=== PATIENT | female | born 1985 | race American Indian/Alaskan Native ===

== ENCOUNTER 2017-05-22 10:35 | Emergency (ER) | payer SELFPAY ==
[2017-05-22] MEDS ORDERED: NORCO 5/325 PO ONE (23:07)
[2017-05-22] MEDS ORDERED: TORADOL IM ONE (23:07)
--- NOTE | 2017-05-22 23:09 | Emergency Department Report ---
ED Chest Pain HPI - General Chief Complaint: Chest Pain Stated Complaint: chest pain Time Seen by Provider: 05/22/17 22:43 Source: patient Mode of arrival: Ambulatory Limitations: No Limitations - History of Present Illness Initial Comments: 32-year-old female with a past medical history a previous cholecystectomy presents to the hospital with complains of chest pain and left ear pain. Patient has had mid/sternal chest pain for the past week that is constant and stabbing. Worse with deep inspiration, palpation, and movement. Pain is moderate in intensity without alleviating factors. Patient feeling short of breath due to pain with deep inspiration. Patient denies cough, fever, chest trauma, calf tenderness, edema, history of PE/DVT, peripheral control pill use, or recent travel. Patient started to have left ear pain for the past 5 days as progressively worsening and spreading to her head. Patient works building cabinets and performs heavy lifting. Severity scale (0 -10): 6 - Related Data Previous Rx's Medication Instructions Recorded Last Taken Type ALBUTEROL Inhaler [ProAir HFA 1 puff IH Q4-6H PRN #1 inha 04/11/13 Unknown Rx Inhaler] Benzonatate [Tessalon Perle] 100 mg PO Q6H PRN #12 capsule 04/11/13 Unknown Rx Ibuprofen [Motrin] 800 mg PO TID PRN #20 tablet 04/11/13 Unknown Rx Amoxicillin [Amoxicillin TAB] 875 mg PO BID #20 tablet 05/22/17 Unknown Rx HYDROcodone/APAP 5-325 [[place] 1 each PO Q6HR PRN #20 tablet 05/22/17 Unknown Rx 5/325] Ibuprofen [Motrin] 800 mg PO Q8HR PRN #30 tablet 05/22/17 Unknown Rx Allergies Allergy/AdvReac Type Severity Reaction Status Date / Time No Known Allergies Allergy Unverified 04/11/13 12:59 Heart Score - HEART Score History: Slightly suspicious EKG: Normal Age: < 45 Risk factors: 1-2 risk factors (smoker, obese) Troponin: < normal limit HEART Score: 1 ED Review of Systems ROS: Stated complaint: FLU LIKE SYMPTOMS Other details as noted in HPI Comment: All other systems reviewed and negative Other: Constitutional: No fevers chills Eyes: No eye pain visual changes ENT: as per hpi Neck: Denies pain Respiratory: Denies cough wheezing Cardiovascular: as per hpi GI: Denies abdominal pain, nausea, vomiting, diarrhea : Denies dysuria Musculoskeletal: Denies back pain Skin: Denies rash, lesions, erythema Neurologic: Denies headache, numbness, weakness Psychiatric: Denies suicidal ideation, hallucinations ED Past Medical Hx - Past Medical History Previous Medical History?: No - Surgical History Hx Cholecystectomy: Yes Additional Surgical History: gallbladder 2010 - Social History Smoking Status: Current Every Day Smoker Substance Use Type: None - Medications Home Medications: Home Medications Medication Instructions Recorded Confirmed Last Taken Type ALBUTEROL Inhaler [ProAir HFA 1 puff IH Q4-6H PRN #1 inha 04/11/13 Unknown Rx Inhaler] Benzonatate [Tessalon Perle] 100 mg PO Q6H PRN #12 capsule 04/11/13 Unknown Rx Ibuprofen [Motrin] 800 mg PO TID PRN #20 tablet 04/11/13 Unknown Rx Amoxicillin [Amoxicillin TAB] 875 mg PO BID #20 tablet 05/22/17 Unknown Rx HYDROcodone/APAP 5-325 [[place] 1 each PO Q6HR PRN #20 tablet 05/22/17 Unknown Rx 5/325] Ibuprofen [Motrin] 800 mg PO Q8HR PRN #30 tablet 05/22/17 Unknown Rx ED Physical Exam - General Limitations: No Limitations - Other Other exam information: General: No limitations, patient is alert in no acute distress Head exam: Atraumatic, normocephalic Eyes exam: Normal appearance, pupils equal reactive to light, extraocular movements intact ENT: Moist mucous membrane, left ear: Erythema with good light reflex. Right ear no erythema good light reflex Neck exam: Normal inspection, full range of motion, no meningismus nontender Respiratory exam: Clear to auscultation bilateral, no wheezes, rales, crackles. Reproducible sternal and upper chest wall tenderness to palpation. Cardiovascular: Normal rate and rhythm, normal heart sounds Abdomen: Soft, nondistended, and nontender, with normal bowel sounds, no rebound, or guarding Extremity: Full range of motion normal inspection no deformity, tenderness or edema Back: Normal Inspection, full range of motion, no tenderness Neurologic: Alert, oriented x3, cranial nerves intact, no motor or sensory deficit Psychiatric: normal affect, normal mood Skin: Warm, dry, intact ED Course Vital Signs 05/22/17 05/22/17 05/22/17 11:30 22:21 22:45 Temperature 98.5 F 98.5 F Pulse Rate 63 59 L 56 L Respiratory 16 16 18 Rate Blood Pressure 109/61 113/65 Blood Pressure 98/61 [Right] O2 Sat by Pulse 99 99 Oximetry 05/22/17 23:01 Temperature Pulse Rate Respiratory 16 Rate Blood Pressure Blood Pressure [Right] O2 Sat by Pulse 99 Oximetry - Reevaluation(s) Reevaluation #1: 05/22/17 23:46 pt received toradol and norco for pain MICHELLE score - Michelle Score Age > 65: (0) No Aspirin use within the Past 7 Days: (0) No 3 or more CAD Risk Factors: (0) No 2 or more Angina events in past 24 hrs: (0) No Known CAD with more than 50% Stenosis: (0) No Elevated Cardiac Markers: (0) No ST Deviation Greater than 0.5mm: (0) No MICHELLE Score: 0 ED Medical Decision Making - EKG Data -: EKG Interpreted by Co EKG shows normal: sinus rhythm, axis (74), QRS complexes (58), ST-T waves (no stemi/t inv) Rate: normal (58) - EKG Data When compared to previous EKG there are: previous EKG unavailable - Radiology Data Radiology results: report reviewed (chest x-ray read by radiologist: No acute findings) - Medical Decision Making Chest pain is reproducible with unremarkable vital signs, chest x-ray, and EKG. No DVT/PE risk factors. Patient performs lifting building cabinets at work that could be the inciting cause. She reaches symptomatically for pain and outpatient follow-up will be encouraged. Left ear appears to be more red than the right and therefore patient will be covered with antibiotics for otitis - Differential Diagnosis costochondritis, NH, PE, otitis media, otitis seroma, Critical Care Time: No Critical care attestation.: If time is entered above; I have spent that time in minutes in the direct care of this critically ill patient, excluding procedure time. ED Disposition Clinical Impression: Acute costochondritis Otitis media Qualifiers: Chronicity: acute Laterality: left Disposition: DC-01 TO HOME OR SELFCARE Is pt being admited?: No Does the pt Need Aspirin: No Condition: Stable Instructions: Costochondritis (ED), Otitis Media (ED) Additional Instructions: Take the medication as prescribed. Do not drive or operate heavy machinery while taking the Gr[place]. Follow up with the clinic or doctor provided. Return if symptoms worsen. Prescriptions: Amoxicillin [Amoxicillin TAB] 875 mg PO BID #20 tablet HYDROcodone/APAP 5-325 [[place] 5/325] 1 each PO Q6HR PRN #20 tablet PRN Reason: Pain Ibuprofen [Motrin] 800 mg PO Q8HR PRN #30 tablet PRN Reason: Pain Referrals: LUL WRIGHT MD [Primary Care Provider] - 3-5 Days [facility] [Provider Group] - 3-5 Days (primary care clinic) Forms: Work/School Release Form(ED) Time of Disposition: 23:50
--- NOTE | 2017-05-22 23:38 | XRay Report ---
FINAL REPORT PROCEDURE: Chest. TECHNIQUE: PA and lateral views. HISTORY: Shortness of breath. COMPARISON: No prior studies are available for comparison. FINDINGS: The heart and mediastinum appear normal. The lungs are clear and well expanded. There are no pleural effusions. The soft tissues and regional skeleton are unremarkable. IMPRESSION: Normal study.
[2017-05-23 00:28] VITALS: BP 107/69
== END 2017-05-23 00:29 | disposition home or self-care (01) ==
LOC: ED 10:35
DX: M94.0 Chondrocostal junction syndrome [Tietze] (principal); R07.89 Other chest pain; H66.92 Otitis media, unspecified, left ear; F17.200 Nicotine dependence, unspecified, uncomplicated; Z90.49 Acquired absence of other specified parts of digestive tract
CPT/HCPCS: 71046; 93005; 93010; 96372; 99283; J1885

== ENCOUNTER 2017-11-08 18:48 | Emergency (ER) | payer SELFPAY ==
[2017-11-08] MEDS ORDERED: MOTRIN ONE (19:38)
[2017-11-08] MEDS ORDERED: MOTRIN PO ONE (19:44)
--- NOTE | 2017-11-08 22:04 | XRay Report ---
FINAL REPORT PROCEDURE: Left femur. TECHNIQUE: AP and lateral views. HISTORY: Laceration with metal object. COMPARISON: No prior studies are available for comparison. FINDINGS: The bones appear intact without fracture or dislocation. The joint spaces appear satisfactory. The soft tissues are unremarkable. There are no radiopaque foreign bodies. IMPRESSION: Normal study.
[2017-11-09] MEDS ORDERED: XYLOCAINE 1% 20 mL INFILTRATI ONE (03:29)
[2017-11-09] MEDS ORDERED: BOOSTRIX IM ONE (03:29)
--- NOTE | 2017-11-09 03:56 | Emergency Department Report ---
ED Laceration HPI - HPI Chief Complaint: Laceration/Recheck/Suture Stated Complaint: HOLE IN LEG Time Seen by Provider: 11/09/17 03:28 Occurred When: Yesterday Location: Upper Extremity Severity: mild Tetanus Status: Not up to Date Laceration Symptoms: Yes Pain, No Foreign Body Sensation, No Numbness, No Weakness Other History: This is a 32-year-old female nontoxic, well nourished in appearance, no acute signs of distress presents to the ED with c/o of left thigh laceration that occurred last night around 7 PM. Patient stated that she was caught on a hook. Patient denies any bleeding. She stated the bleeding is under control. Patient denies any fever, chills, nausea, vomiting, chest pain, shortness of breathe, headache, stiff neck, numbness or tingling. Patient stated that she is not up-to-date with tetanus. Patient denies any allergies or significant past medical history. ED Review of Systems ROS: Stated complaint: HOLE IN LEG Other details as noted in HPI Constitutional: denies: chills, fever Eyes: denies: eye pain, eye discharge, vision change ENT: denies: ear pain, throat pain Respiratory: denies: cough, shortness of breath, wheezing Cardiovascular: denies: chest pain, palpitations Endocrine: no symptoms reported Gastrointestinal: denies: abdominal pain, nausea, diarrhea Genitourinary: denies: urgency, dysuria, discharge Musculoskeletal: denies: back pain, joint swelling, arthralgia Skin: denies: rash, lesions Neurological: denies: headache, weakness, paresthesias Psychiatric: denies: anxiety, depression Hematological/Lymphatic: denies: easy bleeding, easy bruising ED Past Medical Hx - Past Medical History Previous Medical History?: No - Surgical History Past Surgical History?: Yes Hx Cholecystectomy: Yes Additional Surgical History: gallbladder 2010 - Social History Smoking Status: Current Every Day Smoker Substance Use Type: None - Medications Home Medications: Home Medications Medication Instructions Recorded Confirmed Last Taken Type ALBUTEROL Inhaler [ProAir HFA 1 puff IH Q4-6H PRN #1 inha 04/11/13 Unknown Rx Inhaler] Benzonatate [Tessalon Perle] 100 mg PO Q6H PRN #12 capsule 04/11/13 Unknown Rx Ibuprofen [Motrin] 800 mg PO TID PRN #20 tablet 04/11/13 Unknown Rx Amoxicillin [Amoxicillin TAB] 875 mg PO BID #20 tablet 05/22/17 Unknown Rx HYDROcodone/APAP 5-325 [[place] 1 each PO Q6HR PRN #20 tablet 05/22/17 Unknown Rx 5/325] Ibuprofen [Motrin] 800 mg PO Q8HR PRN #30 tablet 05/22/17 Unknown Rx Sulfamethoxazole/Trimethoprim 1 each PO BID #14 tablet 11/09/17 Unknown Rx [Bactrim DS TAB] traMADol [Ultram] 50 mg PO Q6HR PRN #12 tablet 11/09/17 Unknown Rx Laceration Physical Exam - Exam General: Vital signs noted. No distress. Alert and acting appropriately. GENERAL: The patient is a well-developed, well-nourished in no apparent distress. Patient is alert and acting appropriately for age. Alert and oriented 3, no apparent distress, normal gait, atraumatic. HEENT: Head is normocephalic and atraumatic. PERRL, Extraocular muscles are intact. Pupils are equal, round, and reactive to light and accommodation. Nares appeared normal. Mouth is well hydrated and without lesions. Mucous membranes are moist. Posterior pharynx clear of any exudate or lesions. Mouth is well hydrated and without lesions. Tonsils not erythematous or swollen. Uvula midline. Tongue elevated. Mucous members are moist. Posterior pharynx clear, no exudate or lesions. Patent airways. NECK: Supple. No carotid bruits. No lymphadenopathy or thyromegaly.nontender. No meningitic signs are noted. LUNGS: Clear to auscultation. Non labor breathing. No intercostal retractions. Symmetrical with respiration, no wheezing, no rales, or crackles. HEART: Regular rate and rhythm without murmur, rubs or gallops. No reproducible. S1, S2 present, regular rate and rhythm without murmur, no rubs, no gallops. ABDOMEN: Soft, nontender, and nondistended. Positive bowel sounds. No hepatosplenomegaly was noted. No guarding or rebound tenderness, negative epigastric bruit. Negative psoas sign, negative negron sign, negative McBurneys sign EXTREMITIES: Without any cyanosis, clubbing, rash, lesions or edema. Peripheral pulses intact. Capillary refill less than 2 seconds. Full range of motion bilaterally. NEUROLOGIC: Cranial nerves II through XII are grossly intact. Alert and oriented x 3. Normal gait. Symmetrical strength and sensation. Reflexes 2+ throughout. Cerebellar testing normal. GCS score of 15. PSYCHIATRIC: Normal affect with no suicidal or homicidal ideations. Wound Length (cm): 1 Laceration Location: Upper Extremity Full Body Front + Back: 1 - 1 cm superficial laceration with bleeding controlled. Laceration Exam: Yes Normal Distal CMS, No Foreign Body, No Exposed Tendon, Vessel, or Nerve, No Tendon Injury ED Course Vital Signs 11/08/17 11/08/17 19:47 20:03 Temperature 98.4 F Pulse Rate 77 Respiratory 20 20 Rate Blood Pressure 115/78 [Right] O2 Sat by Pulse 99 Oximetry - Reevaluation(s) Reevaluation #1: 11/09/17 03:53 Patient is speaking in full sentences with no signs of distress noted. - Laceration /Wound Repair Left Thigh Wound Location: lower extremity (left anterior thigh) Wound Length (cm): 1 Wound's Depth, Shape: superficial, linear Wound Explored: clean Irrigated w/ Saline (ccs): 40 Betadine Prep?: Yes Anesthesia: 1% Lidocaine Volume Anesthetic (ccs): 6 Wound Debrided: minimal Wound Repaired With: sutures Suture Size/Type: 4:0, proline Number of Sutures: 5 Layer Closure?: Yes Deep Layer Suture Size/Type: 4:0 (Vicryl) Number Deep Layer Sutures: 1 Sterile Dressing Applied?: Yes Progress: Under sterile field, I used Betadine to clean the area. I then used 40 mL of normal saline to flush the area. I then used 1% lidocaine plain and injected 6 mL to the wound. I then used a 4-0 Vicryl to suture the laceration deeper dermis with total of 2 stitches. I did used a 4-0 Prolene to suture superficial laceration. Number of stitches 5. I then applied a sterile 4 x 4 with tape. Minimal bleeding noted but is under control. Patient tolerated procedure well with no signs of distress. ED Medical Decision Making - Medical Decision Making This is a 32-year-old female that presents with laceration. Patient is stable and was examined by me. Patient received Tetanus in the ED. The laceration suturing has been performed and has been performed and patient tolerated well. A sterile dressing has been applied. Patient was educated on proper wound care. Patient is discharged with Bactrim and Ultram and was instructed not to operate any machinery while taking Ultram due to drowsiness. Patient was instructed to return in 10 days for suture removal. Patient was instructed to refer to Follow-up with a primary care doctor in 3-5 days or if symptoms worsen and continue return to emergency room as soon as possible. At time of discharge , the patient does not seem toxic or ill in appearance. No acute signs of distress noted. Patient agrees to discharge treatment plan of care. No further questions noted by the patient. Critical care attestation.: If time is entered above; I have spent that time in minutes in the direct care of this critically ill patient, excluding procedure time. ED Disposition Clinical Impression: Laceration Disposition: DC-01 TO HOME OR SELFCARE Is pt being admited?: No Does the pt Need Aspirin: No Condition: Stable Instructions: Suture Care (ED), Laceration (ED), Tramadol (By mouth) Additional Instructions: Follow-up with a primary care doctor in 3-5 days or if symptoms worsen and continue return to emergency room as soon as possible. Return in 10 days for suture removal. Prescriptions: Sulfamethoxazole/Trimethoprim [Bactrim DS TAB] 1 each PO BID #14 tablet traMADol [Ultram] 50 mg PO Q6HR PRN #12 tablet PRN Reason: Pain Referrals: PRIMARY MD ASHLEIGH [Primary Care Provider] - 3-5 Days ANDI SHELDON MD [Staff Physician] - 3-5 Days [facility] [Outside] - 3-5 Days [facility] [Outside] - 3-5 Days Forms: Work/School Release Form(ED)
[2017-11-09 04:52] VITALS: BP 118/74
== END 2017-11-09 04:52 | disposition home or self-care (01) ==
LOC: ED 18:48
DX: S71.112A Laceration without foreign body, left thigh, initial encounter (principal); F17.200 Nicotine dependence, unspecified, uncomplicated; Z90.49 Acquired absence of other specified parts of digestive tract; W23.1XXA Caught, crushed, jammed, or pinched between stationary objects, initial encounter; Y93.89 Activity, other specified; Y99.8 Other external cause status; Y92.89 Other specified places as the place of occurrence of the external cause
CPT/HCPCS: 90471; 90715; 99283

== ENCOUNTER 2017-11-20 08:30 | Emergency (ER) | payer SELFPAY ==
[2017-11-20 09:25] VITALS: BP 110/64
--- NOTE | 2017-11-20 10:50 | Emergency Department Report ---
Suture/Staple Removal - HPI Chief Complaint: Laceration/Recheck/Suture Stated Complaint: PACKING REMOVAL Time Seen by Provider: 11/20/17 10:32 When Sutures or Herson Placed: 11-14 Days Ago Wound Location: left medial thigh ED Review of Systems ROS: Stated complaint: PACKING REMOVAL Other details as noted in HPI Comment: All other systems reviewed and negative Skin: lesions, change in color ED Past Medical Hx - Past Medical History Previous Medical History?: No - Surgical History Past Surgical History?: Yes Hx Cholecystectomy: Yes Additional Surgical History: gallbladder 2010 - Social History Smoking Status: Current Every Day Smoker Substance Use Type: None - Medications Home Medications: Home Medications Medication Instructions Recorded Confirmed Last Taken Type ALBUTEROL Inhaler [ProAir HFA 1 puff IH Q4-6H PRN #1 inha 04/11/13 Unknown Rx Inhaler] Benzonatate [Tessalon Perle] 100 mg PO Q6H PRN #12 capsule 04/11/13 Unknown Rx Ibuprofen [Motrin] 800 mg PO TID PRN #20 tablet 04/11/13 Unknown Rx Amoxicillin [Amoxicillin TAB] 875 mg PO BID #20 tablet 05/22/17 Unknown Rx HYDROcodone/APAP 5-325 [[place] 1 each PO Q6HR PRN #20 tablet 05/22/17 Unknown Rx 5/325] Ibuprofen [Motrin] 800 mg PO Q8HR PRN #30 tablet 05/22/17 Unknown Rx Sulfamethoxazole/Trimethoprim 1 each PO BID #14 tablet 11/09/17 Unknown Rx [Bactrim DS TAB] traMADol [Ultram] 50 mg PO Q6HR PRN #12 tablet 11/09/17 Unknown Rx Bacitracin Zinc [Antibiotic] 28.4 gm TP BID #1 oint...g. 11/20/17 Unknown Rx Suture Removal Exam - Exam General: Vital signs noted. No distress. Alert and acting appropriately. Extraocular movements intact. Tongue midline. No facial droop. Facial sensation intact to light touch in the V1, V2, V3 distribution bilaterally. 5 and 5 strength in 4 extremities.. Sensation is intact to light touch in 4 extremities. Gait within normal limits. Normocephalic, atraumatic. S1, S2, regular rate and rhythm. Lung sounds clear to auscultation bilaterally. 2+ pulses noted in the bilateral upper, lower extremities. Compartments soft. No long bony tenderness. The pelvis is stable. Abdomen soft, nontender, nondistended, no rebound, guarding or peritoneal signs. Wound: Yes Tenderness, No Pathologic Erythema, No Drainage, No Pus, No Wound Dehiscence Other Systems: All other systems reviewed and are unremarkable. ED Course Vital Signs 11/20/17 09:21 Temperature 98.4 F Pulse Rate 57 L Respiratory 16 Rate Blood Pressure 110/64 O2 Sat by Pulse 100 Oximetry ED Recheck MDM - Core Measures Measure Exclusions: not indicated - Differential Diagnosis Wound Recheck, Suture/Staple Removal - Medical Decision Making Vital Signs 11/20/17 09:21 Temperature 98.4 F Pulse Rate 57 L Respiratory 16 Rate Blood Pressure 110/64 O2 Sat by Pulse 100 Oximetry Sutures are removed without difficulty. The wound does not appear to be infected. The patient will be discharged. Critical care attestation.: If time is entered above; I have spent that time in minutes in the direct care of this critically ill patient, excluding procedure time. ED Disposition Clinical Impression: Visit for suture removal Disposition: DC- TO HOME OR SELFCARE Is pt being admited?: No Does the pt Need Aspirin: No Condition: Good Instructions: Suture Removal (ED) Additional Instructions: Wash the area with gentle soap and water every 12-24 hours. Apply warm compresses as often as as needed. Take acetaminophen, ibuprofen, alternating [id number] as needed for pain. Patient may follow up with the cosmetic surgeon in 5-6 months for cosmetic revision if she wishes. Follow up with the primary care doctor within the next 4-6 weeks. Return to the ER right away with it, worsened pain, migration of pain, fevers, chills, lethargy, irritability, projectile vomiting, change in mental status, confusion. Dr. Colindres is a local plastic surgeon. Referrals: PRIMARY CAREMD [Primary Care Provider] - 3-5 Days EMY COLINDRES MD [Staff Physician] - 3-5 Days [facility] [Provider Group] - 3-5 Days
== END 2017-11-20 11:20 | disposition home or self-care (01) ==
LOC: ED 08:30
DX: Z48.01 Encounter for change or removal of surgical wound dressing (principal); T14.8XXD Other injury of unspecified body region, subsequent encounter; X58.XXXD Exposure to other specified factors, subsequent encounter